=== PATIENT | male | born 1950 | race Caucasian/White ===

== ENCOUNTER 2018-08-10 07:05 | Day surgery (SDC) | payer OTHER, MEDICARE ==
[~2018-08-10 07:05] MED LIST: Lactated Ringers 1,000 ML IV SCH
[2018-08-10] MEDS ORDERED: fentaNYL 100 MCG/2 ML SDV ONE (07:49)
[2018-08-10] MEDS ORDERED: Propofol 200 MG/20 ML SDV ONE (07:49)
[2018-08-10] MEDS ORDERED: Ondansetron 4 MG/2 ML SDV IVPUSH ONE (09:10)
--- NOTE | 2018-08-10 10:04 | OR ---
PREOPERATIVE DIAGNOSES: 1. Mild dysphagia. 2. History of alcoholism prior to 2005. POSTOPERATIVE DIAGNOSIS: Diffuse gastritis with multiple superficial ulcerations. TECHNIQUE: The patient was sedated and placed in the left lateral decubitus position. Per MATHEMATICS EDUCATION PROFESSOR, the intraoral bite block was put in position. The flexible video gastroscope was then passed transorally and under visualization as well into the duodenum. The duodenum and duodenal bulb were unremarkable. The antrum and body of the stomach revealed a diffuse gastritis with multiple superficial antral ulcerations. A couple of biopsies were taken from the antrum to rule out H. pylori. There was no evidence of any hiatal hernia or GERD or Schatzki's ring or stenosis, and the remainder of esophagus was normal as the scope was then withdrawn. He tolerated the procedure well. FINAL IMPRESSION: Diffuse gastritis with superficial ulcerations. PLAN: The patient will be placed on Protonix 40 mg daily for 6 weeks. He needs to avoid excessive caffeine, anti-inflammatories, and see how he feels when he goes off the medication again. SCM: 08/10/2018 09:25:08 MODL: 08/10/2018 10:01:30 /[id number]
--- NOTE | 2018-08-10 10:04 | OR ---
PREOPERATIVE DIAGNOSIS: Screening colonoscopy. POSTOPERATIVE DIAGNOSES: 1. Sigmoid diverticulosis. 2. Tiny polyp, transverse colon, 70 cm, removed. PROCEDURE PROPOSED: Total flexible colonoscopy. PROCEDURE DONE: Total flexible colonoscopy with cold biopsy forceps polypectomy x1. INDICATION: This is a 68-year-old male who comes in for screening colonoscopy. His last examination was about 10 years ago. He denies any symptomatology. TECHNIQUE: The patient was brought to the endoscopy suite. He was sedated per MARKETING COMMUNICATIONS ASSOCIATE with propofol and placed in the left lateral decubitus position. The flexible video colonoscope was then passed transanally and under visualization advanced to the cecum. Examination revealed a normal cecal and ascending colon area. In the transverse colon at 70 cm, there was a tiny polyp removed with 1 bite of the cold biopsy forceps and submitted for pathologic examination. The remainder of the transverse and descending colon was unremarkable. The sigmoid colon revealed mild diverticulosis, and the rectum was normal, and the scope was then withdrawn. The patient tolerated the procedure well. FINAL IMPRESSION: 1. Tiny polyp at 70 cm, removed. 2. Sigmoid diverticulosis. PLAN: The patient will be sent a letter of pathology report, which will determine whether he needs a 5 or 10-year followup exam. SCM: 08/10/2018 09:25:08 MODL: 08/10/2018 09:59:13 /[id number]
== END 2018-08-10 11:00 | disposition home or self-care (01) ==
LOC: VM.SDS 07:05
PROVIDERS: ATTEND Surgery
DX: Z12.11 Encounter for screening for malignant neoplasm of colon (principal); K63.5 Polyp of colon; K57.30 Diverticulosis of large intestine without perforation or abscess without bleeding; K25.9 Gastric ulcer, unspecified as acute or chronic, without hemorrhage or perforation; I10 Essential (primary) hypertension; E78.5 Hyperlipidemia, unspecified; F32.9 Major depressive disorder, single episode, unspecified; G47.33 Obstructive sleep apnea (adult) (pediatric); Z88.8 Allergy status to other drugs, medicaments and biological substances; Z99.89 Dependence on other enabling machines and devices; Z79.84 Long term (current) use of oral hypoglycemic drugs; Z79.82 Long term (current) use of aspirin; Z79.899 Other long term (current) drug therapy
CPT/HCPCS: 43239; 45380; 82962; J2704; J3010; J7120